=== PATIENT | female | born 1930 | race Caucasian/White ===

== ENCOUNTER 2018-09-27 09:09 | Inpatient (IN) | payer OTHER ==
[~2018-09-27] VITALS: Ht 162.6 cm; Wt 87.2 kg
[~2018-09-27 09:09] MED LIST: ACIPHEX PO; ADV250/50; BACLOFEN10 MG PO; CALCIUM PO; CHEWABLE ASPIRI81 MG PO; COL100 PO; FERROUS SULFAT324 MG PO; FERROUS SULFAT325 M2 PO; FOSAMAX70 MG/75 M PO; GABAPENTIN100 M2 PO; GLUCOSAMINE500 MG PO; HYD25 PO; LACTULOSE PO; LOSARTAN POTAS100 MG PO; LOSARTAN POTASS25 M1 PO; MELOXICAM7.5 M1 PO; MVI; NAPROSYN375 MG PO; NOR10T PO; OXYBUTYNIN CHLO10 MG PO; PAXIL20 MG PO; PEPCID PO; PRILOSEC20 MG PO; RESTASIS0.05% OU; RESTASIS0.051 OU; SENOKOT NATURA8.6 M1 PO; VERAPAMIL HYDR240 MG PO; VITAMIN C500 M4 PO; ZOFRAN4 M1 PO; [UNRECOGNIZED DRUG - REMARK]
[2018-09-27 09:18] VITALS: Ht 162.6 cm; Wt 87.2 kg
[2018-09-27 10:02] LABS: BASOPHIL % 0.1 % (0-2); PLATELET COUNT 192 x10^3mcL (130-400)
[2018-09-27 10:08] LABS: RED CELL DISTRIBUTION WIDTH 14.6 % (11.5-14.5)
[2018-09-27 10:23] LABS: CALCIUM 9.7 mg/dL (8.5-10.1); CARBON DIOXIDE 27.9 mmol/L (21-32); CHLORIDE SERUM 105 mmol/L (98-107); CREATININE SERUM 1.1 mg/dL (0.6-1.0); GLUCOSE SERUM 148 mg/dL (74-106); POTASSIUM SERUM 4.4 mmol/L (3.5-5.1); SODIUM SERUM 141 mmol/L (136-145)
[2018-09-27 10:31] LABS: ALBUMIN 3.1 g/dL (3.4-5.0); ALKALINE PHOSPHATASE 62 U/L (46-116); ALT/SGPT 26 U/L (14-59); AST/SGOT 31 U/L (15-37); BILIRUBIN TOTAL 0.2 mg/dL (0.20-1.00); C REACTIVE PROTEIN 3.8 mg/dL (<=0.9); TOTAL PROTEIN, SERUM 7.3 g/dL (6.4-8.2)
[2018-09-27 10:32] LABS: CK-MB 1.1 ng/mL (0-3.6)
[2018-09-27 11:06] LABS: FREE T4 0.76 ng/dL (0.76-1.46); T3 TOTAL 0.63 ng/mL; T4(THYROXINE) 5.2 ug/dL (4.7-13.3)
[2018-09-27 11:24] LABS: UA SPECIFIC GRAVITY 1.025 (1.005-1.035); microscopic required? YES; urine erythrocyte TRACE (NEGATIVE)
[2018-09-27 11:46] LABS: ERYTHROCYTE SED RATE 72 mm/hr (0-30)
[2018-09-27] MEDS ORDERED: CALCIUM 600600 M3 PO (13:06)
[2018-09-27] MEDS ORDERED: PAXIL10 MG PO (13:06)
[2018-09-27 15:00] VITALS: BP 175/56
[2018-09-27 15:05] LABS: CHOLESTEROL/HDL RATIO 2.7; MAGNESIUM 2.1 mg/dL (1.8-2.4); PHOSPHOROUS 3.2 mg/dL (2.5-4.9)
[2018-09-27 18:24] VITALS: BP 175/67
[2018-09-27 20:53] VITALS: BP 139/46
[2018-09-28 05:15] VITALS: BP 117/63
[2018-09-28 06:14] LABS: CALCIUM 9.3 mg/dL (8.5-10.1); CARBON DIOXIDE 29.9 mmol/L (21-32); CHLORIDE SERUM 108 mmol/L (98-107); CREATININE SERUM 1.1 mg/dL (0.6-1.0); GLUCOSE SERUM 112 mg/dL (74-106); MAGNESIUM 1.9 mg/dL (1.8-2.4); PHOSPHOROUS 2.9 mg/dL (2.5-4.9); POTASSIUM SERUM 4.3 mmol/L (3.5-5.1); SODIUM SERUM 145 mmol/L (136-145)
[2018-09-28 06:39] LABS: BASOPHIL % 0.3 % (0-2); PLATELET COUNT 184 x10^3mcL (130-400); RED CELL DISTRIBUTION WIDTH 14.4 % (11.5-14.5)
[2018-09-28 08:34] VITALS: BP 160/65
[2018-09-28 12:00] VITALS: BP 151/56
[2018-09-28 16:24] LABS: AMPHETAMINE QUAL UR NONE DETECTED (See below)
[2018-09-28 18:49] VITALS: BP 168/63
[2018-09-28 21:45] VITALS: BP 180/60
[2018-09-29] VITALS (7 sets, daily range): BP systolic 142–181; BP diastolic 51–72
[2018-09-29 07:33] LABS: CALCIUM 8.9 mg/dL (8.5-10.1); CARBON DIOXIDE 28.8 mmol/L (21-32); CHLORIDE SERUM 108 mmol/L (98-107); CREATININE SERUM 0.9 mg/dL (0.6-1.0); GLUCOSE SERUM 120 mg/dL (74-106); POTASSIUM SERUM 3.8 mmol/L (3.5-5.1); SODIUM SERUM 141 mmol/L (136-145)
[2018-09-29 07:38] LABS: BASOPHIL % 0.3 % (0-2); PLATELET COUNT 192 x10^3mcL (130-400); RED CELL DISTRIBUTION WIDTH 14.2 % (11.5-14.5)
[2018-09-30 06:40] VITALS: BP 163/62
[2018-09-30 09:12] VITALS: BP 145/55
[2018-09-30 13:07] VITALS: BP 147/59
[2018-09-30 16:39] VITALS: BP 111/45
[2018-09-30 21:57] VITALS: BP 151/49
[2018-10-01 05:59] VITALS: BP 160/69
[2018-10-01 06:26] LABS: CALCIUM 8.9 mg/dL (8.5-10.1); CHLORIDE SERUM 108 mmol/L (98-107); CREATININE SERUM 0.9 mg/dL (0.6-1.0); GLUCOSE SERUM 116 mg/dL (74-106); MAGNESIUM 1.7 mg/dL (1.8-2.4); POTASSIUM SERUM 3.7 mmol/L (3.5-5.1); SODIUM SERUM 143 mmol/L (136-145)
[2018-10-01 06:33] LABS: BASOPHIL % 0.4 % (0-2); PLATELET COUNT 172 x10^3mcL (130-400); RED CELL DISTRIBUTION WIDTH 14.2 % (11.5-14.5)
[2018-10-01 09:16] VITALS: BP 181/82
[2018-10-01 13:00] VITALS: BP 149/45
[2018-10-01 16:41] VITALS: BP 139/53
[2018-10-01 22:07] VITALS: BP 146/48
[2018-10-02 06:01] VITALS: BP 172/65
[2018-10-02 08:15] VITALS: BP 165/73
[2018-10-02 12:17] VITALS: BP 150/60
[2018-10-02 16:22] VITALS: BP 154/55
[2018-10-02 20:35] VITALS: BP 154/55
== END 2018-10-02 21:10 | disposition home health service (06) | DRG 73 ==
LOC: ED 09:09 → DU 13:13 → MU 13:13 → DU 14:20
PROVIDERS: Family Medicine; Internal Medicine; Specialist
DX: G90.8 Other disorders of autonomic nervous system (principal); N17.0 Acute kidney failure with tubular necrosis; N39.0 Urinary tract infection, site not specified; M62.82 Rhabdomyolysis; E44.0 Moderate protein-calorie malnutrition; Z68.41 Body mass index [BMI] 40.0-44.9, adult; J44.9 Chronic obstructive pulmonary disease, unspecified; I10 Essential (primary) hypertension; F32.9 Major depressive disorder, single episode, unspecified; F41.9 Anxiety disorder, unspecified; E86.0 Dehydration; E11.65 Type 2 diabetes mellitus with hyperglycemia; Z96.659 Presence of unspecified artificial knee joint; Z90.49 Acquired absence of other specified parts of digestive tract; D64.9 Anemia, unspecified; Z79.82 Long term (current) use of aspirin; Z79.899 Other long term (current) drug therapy
CPT/HCPCS: 36600; 82962; 83880; 84439; 90658; 97110-GP; 97116-GP; 97530-GP; J0360; J0696; J1815; J7030; Q0092